=== PATIENT | male | born 1995 | race African-American/Black ===

== ENCOUNTER 2018-06-23 14:27 | Emergency (ER) | payer OTHER ==
[~2018-06-23] VITALS: Ht 175.3 cm; Wt 83.9 kg
[2018-06-23 14:28] VITALS: BP 127/81
[2018-06-23 14:43] LABS: URINE BILIRUBIN NEGATIVE (Negative); URINE BLOOD NEGATIVE (Negative); URINE CLARITY CLEAR; URINE COLOR YELLOW; URINE GLUCOSE-RANDOM* NEGATIVE (Negative); URINE KETONES NEGATIVE (Negative); URINE LEUKOCYTES-REFLEX NEGATIVE (Negative); URINE NITRITE-REFLEX NEGATIVE (Negative); URINE PROTEIN (DIPSTICK) NEGATIVE (Negative); URINE UROBILINOGEN 0.2 E.U./dl (0.2-1.0)
== END 2018-06-23 16:07 | disposition home or self-care (01) ==
LOC: ER 14:27
PROVIDERS: Physician Assistant
DX: Z20.2 Contact with and (suspected) exposure to infections with a predominantly sexual mode of transmission (principal)